=== PATIENT | female | born 1935 | race Caucasian/White ===

== ENCOUNTER 2018-03-11 18:24 | Observation (INO) ==
--- NOTE | 2018-03-11 23:28 | P.HPIM ---
History of Present Illness Service: [facility] . Primary Care Physician: Omega Sharp Chief Complaint: Nosebleed History of Present Illness: Ms. Del Cid is a pleasant 82-year-old female who was transferred from the [place] emergency room for management of epistaxis. The patient had a balloon sinuplasty by Dr. Michelle, ENT in [facility] on 03/03/18. The emergency room physician placed packing in bilateral nares and she was transferred to [facility] for ENT evaluation. Her blood pressure was 189/94 in the [place] ER was successfully treated with enalapril. Patient is seen in the CDU. She states her nose bleed started yesterday after she blew her nose. She states that she held pressure on it but it continued to bleed despite the pressure. The patient states she is still bleeding and feels like she is swallowing all of the blood. She is continuously blotting the region of her nose directly inferior to the bilateral nasal packing and blood gets transferred to the paper towel she wipes her nose with. I am unable to visualize any blood in the posterior pharynx and I do not see any active bleeding from the right eye (which she had in [place]). No active bleeding is seen from either nare. She denies being on any blood thinners/anticoagulants. No family history of bleeding abnormalities. She complains of cough for the past 6 months with some mucus. She has been seen by her primary care for this. She says the etiology of this cough remains unknown. She will need to continue to follow-up as an outpatient with her primary care doctor. She indicates that Reza Ca have helped in the past with her cough and is requesting that we order some for this hospitalization. Review of Systems All other systems reviewed negative except as stated in HPI PMFSH - History History Provided By: Patient - Medical History Medical History: Medical History (Last Reviewed 03/11/18 @ 23:28 by PEREZ Arriola) Hypertension - Surgical History Surgical History: Surgical History (Last Reviewed 03/11/18 @ 23:28 by PEREZ Arriola) History of right hip replacement - Family History Family History: Family History (Last Updated 03/11/18 @ 23:28 by PEREZ Arriola) Mother Family history of cancer Father Family history of coronary artery disease - Social History I have reviewed the patient's Social History: Yes - Tobacco History Smoking Status: Never smoker - Alcohol History How Often Do You Have a Drink Containing Alcohol: Never - Substance Use History Substance History: No History of Abuse Medications and Allergies Active Medications: Active Medications Benzonatate (Tessalon Perles) 100 mg PO Q8H PRN PRN Reason: COUGH Allergies Allergy/AdvReac Type Severity Reaction Status Date / Time No Known Allergies Allergy Verified 03/11/18 18:50 Home Medications Medication Instructions Recorded Confirmed Type enalapril maleate 2.5 mg PO DAILY 03/11/18 03/11/18 History Exam Narrative: GENERAL: This is a well-nourished, well-developed patient, in no apparent distress. SKIN: No rashes, ecchymoses or lesions. Cool and dry. HEAD: Atraumatic. Normocephalic. EYES: No scleral icterus. No injection or drainage. No blood noted from right eye. ENT: Packing in bilateral naris with dark blood saturating packing; unable to visualize any blood in the posterior pharynx NECK: Trachea midline. No JVD. CARDIOVASCULAR: Regular rate and rhythm without murmurs, gallops, or rubs. RESPIRATORY: Clear to auscultation. Breath sounds equal bilaterally. No wheezes , rales, or rhonchi. GASTROINTESTINAL: Abdomen soft, non-tender, nondistended. No guarding. MUSCULOSKELETAL: Extremities without clubbing, cyanosis, or edema. No calf tenderness. NEUROLOGICAL: Awake and alert. Motor and sensory grossly within normal limits. Normal speech. . Results - Labs CBC & Chem 7: 03/11/18 23:20 Caprini VTE Risk Assessment Caprini VTE Risk Assessment: Moderate/High Risk (score >= 2) Caprini Risk Assessment Model: Point Value = 1 Point Value = 2 Point Value = 3 Point Value = 5 Age 41-60 Minor surgery BMI > 25 kg/m2 Swollen legs Varicose veins or History of unexplained or recurrent spontaneous Oral contraceptives or hormone replacement Sepsis (< 1 month) Serious lung disease, including pneumonia (< 1 month) Abnormal pulmonary function Acute myocardial infarction Congestive heart failure (< 1 month) History of inflammatory bowel disease Medical patient at bed rest Age 61-74 Arthroscopic surgery Major open surgery (> 45 min) Laparoscopic surgery (> 45 min) Malignancy Confined to bed (> 72 hours) Immobilizing plaster cast Central venous access Age >= 75 History of VTE Family history of VTE Factor V Leiden Prothrombin [id number] Lupus anticoagulant Anticardiolipin antibodies Elevated serum homocysteine Heparin-induced thrombocytopenia Other congenital or acquired thrombophilia Stroke (< 1 month) Elective arthroplasty Hip, pelvis, or leg fracture Acute spinal cord injury (< 1 month) Prophylaxis Regimen: Total Risk Factor Score Risk Level Prophylaxis Regimen 0-1 Low Early ambulation 2 Moderate Order ONE of the following: *Sequential Compression Device (SCD) *Heparin 5000 units SQ BID 3-4 Higher Order ONE of the following medications: *Heparin 5000 units SQ TID *Enoxaparin/Lovenox 40 mg SQ daily (WT < 150 kg, CrCl > 30 mL/min) *Enoxaparin/Lovenox 30 mg SQ daily (WT < 150 kg, CrCl > 10-29 mL/min) *Enoxaparin/Lovenox 30 mg SQ BID (WT < 150 kg, CrCl > 30 mL/min) AND/OR *Sequential Compression Device (SCD) 5 or more Highest Order ONE of the following medications: *Heparin 5000 units SQ TID (Preferred with Epidurals) *Enoxaparin/Lovenox 40 mg SQ daily (WT < 150 kg, CrCl > 30 mL/min) *Enoxaparin/Lovenox 30 mg SQ daily (WT < 150 kg, CrCl > 10-29 mL/min) *Enoxaparin/Lovenox 30 mg SQ BID (WT < 150 kg, CrCl > 30 mL/min) AND *Sequential Compression Device (SCD) Assessment and Plan - Plan Ms. Del Cid is a pleasant 82-year-old female who was transferred from the [place] emergency room for management of epistaxis. The patient had a balloon sinuplasty by Dr. Michelle, ENT in [facility] on 03/03/18. Epistaxis -Patient was evaluated by me shortly after her arrival in the CDU -She has a scant amount of blood that she is coughed up into an emesis basin and she is continually blotting her packing which leaks blood onto her paper towel -I have advised her to stop doing that -Dr. Lord evaluated her shortly after I did -please see his consultation note -his assistance is appreciated -continue nasal packing; patient to follow up with her ENT Dr. Michelle on Wednesday if bleeding remains controlled -Hemoglobin 13.9 and hematocrit 42.8 on arrival and I have ordered a recheck as the patient does appear pale Chronic cough - lungs clear on exam -Negative outpatient workup -?Consider GERD vs. KATE inhibitor? -Tessalon Perles as needed -continue to f/u as an outpatient Hypertension -Consider holding enalapril d/t chronic cough -In the interim, clonidine PRN DVT prophylaxis -Chemoprophylaxis contraindicated with epistaxis -SCDs Discussed Condition With: Dr. Hudson, patient, and RN
[2018-03-11] MEDS ORDERED: Acetaminophen 325 MG Tablet PO PRN (23:29)
[2018-03-11] MEDS ORDERED: Bisacodyl 10 MG Supp RECTAL PRN (23:29)
[2018-03-11 23:35] LABS: Hematocrit 36.4 % (35.0-46.0); Hemoglobin 12.6 gm/dL (11.6-15.3)
--- NOTE | 2018-03-12 00:21 | P.CON ---
History of Present Illness Service: ENT Consult date: 03/12/18 Reason for Consult: Epistaxis Primary Care Provider: Omega Sharp Chief Complaint: Nosebleed History of Present Illness: 82 year old female had an office Balloon Sinuplasty procedure by Dr Michelle earlier this week. Patient reports no immediate complications. She felt over the last few days she had increased mucous secretions. When she blew her nose earlier this evening she had brisk epistaxis. She was not able to reach her operating surgeon and presented to [facility] ED. She had bilateral packing placed there. She initially improved, but did have another episode of bleeding and hypertension with systolic BP to 178. This has been treated and she was transferred [place] [facility] [place]. Here bilateral nasal packing is in place and she has no active bleed. Review of Systems Ears, Nose, Mouth, and Throat: Reports nosebleed (bilateral packing in place. ) , Reports nasal congestion, Reports nasal discharge, Denies facial pain, Denies headache(s) PMFSH - History History Provided By: Patient - Medical History Medical History: Medical History (Last Reviewed 03/11/18 @ 23:28 by PEREZ Arriola) Hypertension - Surgical History Surgical History: Surgical History (Last Reviewed 03/11/18 @ 23:28 by PEREZ Arriola) History of right hip replacement - Family History Family History: Family History (Last Updated 03/11/18 @ 23:28 by PEREZ Arriola) Mother Family history of cancer Father Family history of coronary artery disease - Tobacco History Second Hand Smoke Exposure: No Tobacco Use In Past 30 Days: No Smoking Status: Never smoker - Alcohol History How Often Do You Have a Drink Containing Alcohol: Never - Substance Use History Substance History: No History of Abuse Medications and Allergies Active Medications: Active Medications Acetaminophen (Tylenol) 650 mg PO Q4H PRN PRN Reason: Temp > 100.4 Benzonatate (Tessalon Perles) 100 mg PO Q8H PRN PRN Reason: COUGH Bisacodyl (Dulcolax Supp) 10 mg RECTAL DAILY PRN PRN Reason: SEVERE CONSITIPATION Sodium Chloride (Ns Inj) 1,000 mls @ 75 mls/hr IV.CONT .[id number] ALLEGRA Last Admin: 03/12/18 00:00 Dose: 75 mls/hr Ondansetron HCl (Zofran Inj) 4 mg IV.PUSH Q6H PRN PRN Reason: NAUSEA OR VOMITING Sennosides (Senokot) 17.2 mg PO Q12H PRN PRN Reason: Moderate Constipation Allergies Allergy/AdvReac Type Severity Reaction Status Date / Time No Known Allergies Allergy Verified 03/11/18 18:50 Home Medications Medication Instructions Recorded Confirmed Type enalapril maleate 2.5 mg PO DAILY 03/11/18 03/11/18 History Physical Exam - Routine HEENT Exam ENT: Present: mucous membranes moist, oropharynx clear, dentition normal, nares patent (bilateral rapid rhino nasal packing. No active bleed. ) Results - Labs CBC & Chem 7: 03/11/18 23:20 Labs: Laboratory Results - last 24 hr 03/11/18 23:20 Hgb 12.6 Hct 36.4 Assessment and Plan - Assessment (1) Epistaxis Code(s): R04.0 - Epistaxis Status: Acute - Plan Bilateral packing in position. Patient is not currently bleeding. Would keep her NPO and at bedrest tonight. Expect her to be controlled with packing. Would keep packing for 72 hours. She can see her operating surgeon Wednesday for removal. Observe here overnight.
[2018-03-12] MEDS ORDERED: Melatonin 5 MG Tablet PO ONE (01:00)
[2018-03-12] MEDS: Benzonatate 100 MG Capsule PO PRN ×2 (01:07→11:56)
[2018-03-12 07:41] LABS: Baso % (Auto) 0.5 % (0.0-2.0); Eos # (Auto) 0.3 th/mm3 (0.0-0.4); Eos % (Auto) 3.1 % (0.0-4.0); Hematocrit 37.2 % (35.0-46.0); Hemoglobin 12.7 gm/dL (11.6-15.3); Lymph # (Auto) 1.6 th/mm3 (1.0-4.8); Lymph % (Auto) 18.2 % (9.0-44.0); Mean Corpuscular HGB Conc 34.1 % (32.0-36.0); Mean Corpuscular Hemoglobin 30.6 pg (27.0-34.0); Mean Corpuscular Volume 89.8 fL (80.0-100.0); Mean Platelet Volume 7.2 fL (7.0-11.0); Mono # (Auto) 0.8 th/mm3 (0.0-0.9); Mono % (Auto) 9.2 % (0.0-8.0); Neut # (Auto) 6.2 th/mm3 (1.8-7.7); Platelet Count 259 th/mm3 (150-450); Red Blood Count 4.14 mil/mm3 (4.00-5.30); Red Cell Distribution Width 14.6 % (11.6-17.2)
[2018-03-12 07:47] LABS: Anion Gap 9 meq/L (5-15); Blood Urea Nitrogen 25 mg/dL (7-18); Calcium 7.9 mg/dL (8.5-10.1); Carbon Dioxide 22.7 meq/L (21.0-32.0); Chloride 109 meq/L (98-107); Glomerular Filtration Rate Greater Than 89 mL/min (>89); Glucose,Random 88 mg/dL (74-106); Potassium 4.1 meq/L (3.5-5.1); Sodium 141 meq/L (136-145)
--- NOTE | 2018-03-12 08:34 | P.PN ---
Subjective Interval history: Packing in place and now dry. No significant bleed overnight. Physical Exam Vital signs: Vital Signs 03/12/18 04:13 Temperature 97.8 F Pulse Rate 91 H Respiratory Rate 18 Blood Pressure 123/66 Pulse Oximetry 97 Intake & Output 03/11/18 03/12/18 03/12/18 18:59 06:59 18:59 Other: # Voids 2 - Routine HEENT Exam ENT: Present: mucous membranes moist (Bilateral nasal packing in place. No bleeding. ) Results - Labs CBC & Chem 7: 03/12/18 06:20 03/12/18 06:20 Laboratory Results - last 24 hr 03/11/18 03/12/18 03/12/18 23:20 06:20 06:20 WBC 9.0 RBC 4.14 Hgb 12.6 12.7 Hct 36.4 37.2 MCV 89.8 MCH 30.6 MCHC 34.1 RDW 14.6 Plt Count 259 MPV 7.2 Neut % (Auto) 69.0 Lymph % (Auto) 18.2 Spink % (Auto) 9.2 H Eos % (Auto) 3.1 Baso % (Auto) 0.5 Neut # (Auto) 6.2 Lymph # (Auto) 1.6 Spink # (Auto) 0.8 Eos # (Auto) 0.3 Baso # (Auto) 0.0 WBC Differential . Differential Comment Auto diff final Sodium 141 Potassium 4.1 Chloride 109 H Carbon Dioxide 22.7 Anion Gap 9 BUN 25 H Creatinine 0.60 Estimated GFR Greater than 89 Random Glucose 88 Calcium 7.9 L D Assessment and Plan - Assessment (1) Epistaxis Code(s): R04.0 - Epistaxis Status: Acute - Plan Epistaxis. Appears controlled. Systolic BP up over 170 this am. Need to control blood pressure. Packing needs to stay 3 days. Can start clear liquids this morning and treat BP. Should let her get up to bathroom. If she remains stable without significant bleed can discharge home. Should be on oral antibiotic like Keflex if not allergic. Should follow up with her operating surgeon Wednesday.
[2018-03-12] MEDS: Sod Chloride 0.9% Inj 1,000 ML IV.CONT SCH ×2 (11:57)
--- NOTE | 2018-03-12 13:49 | P.PNIM ---
Subjective Interval history: no complaints. no dizziness or lightheadedness. no further nose bleeding. Physical Exam Vital signs: Last Vital Signs Temp 98.4 F 03/12/18 12:00 Pulse 93 H 03/12/18 12:00 Resp 12 03/12/18 12:00 BP 152/80 H 03/12/18 12:00 Pulse Ox 95 03/12/18 12:00 Intake & Output 03/10/18 03/11/18 03/12/18 03/13/18 06:59 06:59 06:59 06:59 Intake Total 893 / 893 Balance 893 / 893 Weight 45.359 kg Narrative: GENERAL: pleasant elderly lady, not in distress. HEENT:not pale,anicteric,nasal packing in situ with dry blood. no active bleeding. CARDIOVASCULAR: Regular rate and rhythm without murmurs, gallops, or rubs. RESPIRATORY: Clear to auscultation. Breath sounds equal bilaterally. No wheezes , rales, or rhonchi. GASTROINTESTINAL: Abdomen soft, non-tender, nondistended. Normal active bowel sounds MUSCULOSKELETAL: Extremities without clubbing, cyanosis, or edema. NEURO: Alert & Oriented x4 to person, place, time, situation. Moves all ext x4 Results Labs CBC & Chem 7: 03/12/18 06:20 03/12/18 06:20 Assessment and Plan Plan 82 yo F with h/o HTN, recent balloon sinuplasty by Dr. Michelle, ENT in [facility] on 03/03/18. who presented with epistaxis. Nasal packs done in ER, to stay in for 72hr. Patient seen by ENT, cleared for discharge if no further bleeding. Epistaxis has resolved. started on Keflex. liquid diet started. will discharge her this afternoon. She will f/up with her ENT on Wednesday for re-evaluation and removal of nasal packs. Progress Note: Quality VTE Deep Vein Thrombosis/Pulmonary Embolism Present on Admission: No
--- NOTE | 2018-03-12 14:04 | ECG ---
Date Performed: 03/11/2018 Time Performed: 22:48:52 PTAGE: 82 years EKG: SINUS TACHYCARDIA POSSIBLE LEFT ATRIAL ENLARGEMENT INFERIOR MYOCARDIAL INFARCTION ABNORMAL ECG ARTIFACT OF UNCERTAIN ETIOLOGY LIMITS ACCURACY OF INTERPRETATION CONSIDER INFERIOR MYOCARDIAL INF ARCTION, AGE INDETERMINAET PREVIOUS TRACING : 03/11/2018 [id number] DOCTOR: Steve Kaur Interpretating Date/Time 03/12/2018 14:04:14
[2018-03-12 15:49] VITALS: BP 131/80; PULSE 101; RESP 16; TEMP 97.5; O2SAT 96
== END 2018-03-12 16:27 | disposition home or self-care (01) ==
LOC: NEDDLT 18:24 → NEPFCDU 18:24
PROVIDERS: ADMIT Hospitalist; ATTEND Hospitalist